=== PATIENT | female | born 2000 | race African-American/Black ===

== ENCOUNTER 2019-01-22 04:04 | Emergency (ER) | payer MEDICAID ==
[~2019-01-22] VITALS: Ht 180.3 cm; Wt 73.0 kg
[2019-01-22 04:12] VITALS: BP 132/63
== END 2019-01-22 06:27 | disposition left against medical advice (07) ==
LOC: ER 04:04
DX: Z53.21 Procedure and treatment not carried out due to patient leaving prior to being seen by health care provider (principal)